=== PATIENT | female | born 1960 | race Two or more races ===

== ENCOUNTER 2021-09-18 15:02 | Outpatient (CLI) | payer OTHER | END 2021-09-18 15:12 | disposition home or self-care (01) | LOC: RAD 15:02 | PROVIDERS: ATTEND Orthopaedic Surgery | DX: M79.641 Pain in right hand (principal) ==

== ENCOUNTER 2021-11-25 07:19 | Outpatient (CLI) | payer OTHER ==
[2021-11-29] MEDS ORDERED: SYNTHROID88 MCG PO (14:31)
[2021-11-29] MEDS ORDERED: AMBIEN10 MG PO (14:32)
[2021-11-29] MEDS ORDERED: CRESTOR20 MG PO (14:32)
== END 2021-11-25 07:50 | disposition home or self-care (01) ==
LOC: LAB 07:19
PROVIDERS: ATTEND Orthopaedic Surgery
DX: I10 Essential (primary) hypertension (principal); Z76.89 Persons encountering health services in other specified circumstances; D68.8 Other specified coagulation defects

== ENCOUNTER 2021-12-03 06:00 | Day surgery (SDC) | payer OTHER ==
[~2021-12-03 06:00] MED LIST: AMBIEN10 MG PO; CRESTOR20 MG PO; SYNTHROID88 MCG PO
== END 2021-12-03 14:45 | disposition home or self-care (01) ==
LOC: CIR.AMB 06:00
PROVIDERS: ATTEND Orthopaedic Surgery
DX: G57.61 Lesion of plantar nerve, right lower limb (principal); E78.5 Hyperlipidemia, unspecified; E03.9 Hypothyroidism, unspecified